=== PATIENT | female | born 1960 | race Caucasian/White ===

== ENCOUNTER 2018-06-19 15:43 | Emergency (ER) | END 2018-06-19 18:36 | disposition home or self-care (01) ==

== ENCOUNTER 2019-05-11 14:09 | Observation (INO) | payer OTHER ==
[~2019-05-11] VITALS: Ht 167.6 cm; Wt 83.7 kg
[~2019-05-11 14:09] MED LIST: ATOR-2 PO; HYDR-3980 PO; IBUP-1542 PO; IBUP800T48 PO; MECL-77 PO; METO-448 PO; ONDA4TAB14 PO; SERT25TA PO; TAMS-14 PO
[2019-05-11] MEDS ORDERED: ASPIRIN 81 MG TAB PO STA (14:23)
[2019-05-11] MEDS ORDERED: NITROGLYCERIN 2% 1 GM OINT PKT TD STA (14:23)
[2019-05-11] MEDS ORDERED: NITROGLYCERIN (SL) 0.4 MG TAB SL PRN (14:30)
[2019-05-11] MEDS ORDERED: ONDANSETRON 4 MG INJ IV PRN ×2 (17:00→17:30)
[2019-05-11] MEDS ORDERED: NACL 0.9% 3 ML SYG IV SCH (17:00)
[2019-05-11] MEDS ORDERED: ACETAMINOPHEN 325 MG TAB PO PRN (17:30)
[2019-05-11 19:30] VITALS: BP 103/57; PULSE 57; RESP 18
[2019-05-11] MEDS: METOPROLOL 25 MG TAB PO SCH (20:58)
[2019-05-11 20:59] VITALS: BP 106/58; PULSE 70
[2019-05-11 21:25] VITALS: Ht 167.6 cm; Wt 83.7 kg
[2019-05-11] MEDS ORDERED: IBUPROFEN 600 MG TAB PO PRN (21:30)
[2019-05-11 23:59] VITALS: BP 100/56; PULSE 59; RESP 20
[2019-05-12] VITALS (7 sets, daily range): BP systolic 108–133; BP diastolic 59–70; PULSE 56–73; RESP 17–20
[2019-05-12] MEDS: METOPROLOL 25 MG TAB PO SCH ×3 (09:00→20:37)
[2019-05-12] MEDS: SERTRALINE 50 MG TAB PO SCH (09:00)
[2019-05-12] MEDS ORDERED: IOHEXOL 100 ML ONE (13:14)
[2019-05-12] MEDS ORDERED: SOD CHLORIDE 0.9% 100 ML ONE (13:14)
[2019-05-12] MEDS ORDERED: IOHEXOL 350MG/ML 50 ML BTL ONE (13:15)
[2019-05-12] MEDS ORDERED: METOPROLOL 5 MG INJ ONE (13:36)
[2019-05-12] MEDS ORDERED: NITROGLYCERIN AEROSOL (4.9 GM) ONE (13:43)
[2019-05-12] MEDS ORDERED: ATORVASTATIN 80 MG TAB PO SCH (21:00)
[2019-05-13 03:05] VITALS: BP 115/63; PULSE 58; RESP 18
[2019-05-13 07:21] VITALS: BP 137/71; PULSE 62; RESP 18
[2019-05-13] MEDS: SERTRALINE 50 MG TAB PO SCH (08:23)
[2019-05-13] MEDS: METOPROLOL 25 MG TAB PO SCH (08:24)
[2019-05-13 11:35] VITALS: BP 130/70; PULSE 59; RESP 17
== END 2019-05-13 13:00 | disposition home or self-care (01) ==
LOC: E/R 14:09 → OBSVTOIN 17:14 → 6WM 17:14 → INTOOBSV 17:14
PROVIDERS: ADMIT Internal Medicine; ATTEND Hospitalist
DX: R07.81 Pleurodynia (principal); F32.9 Major depressive disorder, single episode, unspecified; Z82.49 Family history of ischemic heart disease and other diseases of the circulatory system
CPT/HCPCS: 71045; 75571; 75574; 80048; 80053; 80061; 82550; 82553; 83036; 83735; 84100; 84439; 84443; 84484; 85025; 93005; 93306; Q9967; Z7500; Z7610; 36415; 99217; G0378